=== PATIENT | male | born 1980 | race Two or more races ===

== ENCOUNTER 2019-04-25 01:50 | Emergency (ER) | payer MEDICAID ==
[~2019-04-25] VITALS: Ht 165.1 cm; Wt 99.8 kg
[2019-04-25 01:50] VITALS: BP 147/74
--- NOTE | 2019-04-25 01:50 | NUR ---
ED Nurse Note: Pt BIBA from residential area, residents called ambulance. Pt is c/o generalized itching. Pt is A&Ox4, vss
[2019-04-25] MEDS ORDERED: BENADRYL25 MG ORAL (02:00)
--- NOTE | 2019-04-25 02:01 | Emergency Room Report ---
History of Present Illness General Chief Complaint: General Complaint Source: Patient Present Illness HPI 38-year-old male with a history of seizure and anxiety. He said somebody called 911 because he was shaky and nervous. He denies suicidal thoughts homicidal thought. Also complaining of itchiness to whole body. He denies any trauma. No fever or chills. He denies any drug use or alcohol use. Allergies: Coded Allergies: No Known Allergies (Unverified , 04/25/19) Patient History Past Medical History: see triage record, old chart reviewed, seizures Past Surgical History: other - craniotomy Pertinent Family History: none Social History: Reports: smoking Immunizations: other Reviewed Nursing Documentation: PMH: Agreed; PSxH: Agreed Nursing Documentation-PMH Hx Seizures: Yes Review of Systems Eye: Denies: eye pain, blurred vision ENT: Denies: ear pain, nose congestion, throat swelling Respiratory: Denies: cough, shortness of breath Cardiovascular: Denies: chest pain, palpitations Gastrointestinal: Denies: abdominal pain, diarrhea, nausea, vomiting Musculoskeletal: Denies: back pain, joint pain Skin: Denies: rash Neurological: Denies: headache, numbness Endocrine: Denies: increased thirst, increased urine Hematologic/Lymphatic: Denies: easy bruising All Other Systems: negative except mentioned in HPI Physical Exam Vital Signs Date Time Temp Pulse Resp B/P (MAP) Pulse Ox O2 Delivery O2 Flow Rate FiO2 04/25/19 01:46 98.2 120 18 147/74 (98) 98 Room Air Vitals with tachycardia Sp02 EP Interpretation: reviewed, normal General Appearance: well appearing, no apparent distress, alert Head: normocephalic, atraumatic Eyes: bilateral eye PERRL, bilateral eye EOMI ENT: hearing grossly normal, normal pharynx Neck: full range of motion, supple, no meningismus Respiratory: chest non-tender, lungs clear, normal breath sounds Cardiovascular #1: regular rate, rhythm, no murmur Gastrointestinal: normal bowel sounds, non tender, no mass, no organomegaly, no bruit, non-distended Musculoskeletal: back normal, gait/station normal, normal range of motion Psychiatric: mood/affect normal Medical Decision Making Diagnostic Impression: Primary Impression: Acute anxiety Additional Impression: Generalized pruritus ER Course Presents with anxiety. He is is calm now. Initially he wanted Ativan that he is out of his Xanax. When I told him that he filled prescription for 30 Xanax 2 mg 10 days ago, he said his mom filled it for him. He still has active prescription. I told to go home and take it. No evidence of suicidal thoughts homicidal thought. No criteria for 5150. Will discharge home. Last Vital Signs Date Time Temp Pulse Resp B/P (MAP) Pulse Ox O2 Delivery O2 Flow Rate FiO2 04/25/19 01:46 98.2 120 18 147/74 (98) 98 Room Air Status: improved Disposition: HOME, SELF-CARE Condition: Stable Scripts Diphenhydramine Hcl* (BENADRYL*) 25 Mg Capsule 50 MG ORAL Q6H PRN for Itching, #30 CAP Prov: Ulysses Lau MD 04/25/19 Additional Instructions: Abstain from drugs and alcohol. Take your medication. Follow up with your doctor in 7 days. Return if symptoms worsen. Ulysses Lau MD Apr 25, 2019 02:01
[2019-04-25 02:11] VITALS: BP 147/74
--- NOTE | 2019-04-25 02:25 | NUR ---
ER DISCHARGE NOTE: Patient is cleared to be discharged per ERMD, pt is aox4, on room air, with stable vital signs. pt was given dc and prescription instructions, pt was able to verbalize understanding, pt id band removed. pt is able to ambulate with steady gait. pt took all belongings.
== END 2019-04-25 02:15 | disposition home or self-care (01) ==
LOC: EDBD 01:50 → EMR 02:12
DX: F41.9 Anxiety disorder, unspecified (principal); L29.9 Pruritus, unspecified; Z86.69 Personal history of other diseases of the nervous system and sense organs
CPT/HCPCS: 99283